=== PATIENT | female | born 1940 | race Caucasian/White ===

== ENCOUNTER 2019-10-26 05:42 | Day surgery (SDC) | payer MEDICARE ==
[2019-10-24 08:52] VITALS: BP_SYST 142; BP_SYST 189; BP_DIAS 104; BP_DIAS 68
[2019-10-24 08:54] LABS: BASOPHILS % (AUTO) 0.8 % (0.0-5.0); EOSINOPHILS % (AUTO) 3.5 % (0.0-8.0); HEMATOCRIT 40.6 % (36-48); LYMPHOCYTES % (AUTO) 25.9 % (21.0-51.0); MEAN CORPUSCULAR HEMOGLOBIN 27.2 pg (27.0-33.0); MEAN CORPUSCULAR HGB CONC 30.8 g/dL (32.0-36.0); MEAN CORPUSCULAR VOLUME 88.3 fL (79-99); MONOCYTES % (AUTO) 6.7 % (3.0-13.0); NEUTROPHILS % (AUTO) 62.8 % (40.0-77.0); PLATELET COUNT (AUTO) 251 K/uL (130-400); RED CELL DISTRIBUTION WIDTH 14.5 % (11.0-15.5); WHITE BLOOD COUNT (AUTO) 8.8 K/uL (4.8-10.8)
[2019-10-24 09:05] LABS: CREATININE 1.1 mg/dL (0.5-1.5)
[2019-10-24 09:07] LABS: INR 0.97 (0.85-1.15); PARTIAL THROMBOPLASTIN TIME 25.3 SEC (26.3-35.5); PROTHROMBIN TIME 10.2 SEC (9.6-11.6)
[2019-10-24 09:28] LABS: APPEARANCE,URINE Clear (CLEAR); BILIRUBIN,URINE Negative (NEGATIVE); COLOR,URINE Yellow (YELLOW); GLUCOSE, URINE (UA) Negative (NEGATIVE); KETONES,URINE Negative (NEGATIVE); LEUKOCYTE ESTERASE ,URINE Large (NEGATIVE); NITRATE,URINE Negative (NEGATIVE); OCCULT BLOOD,URINE Negative (NEGATIVE); PROTEIN,URINE Negative (NEGATIVE); UROBILINOGEN,URINE 0.2 mg/dL (0.2-1.0)
[2019-10-24 09:50] LABS: BACTERIA,URINE Few /HPF (None Seen); RBC,URINE 0-1 /HPF (0-1)
--- NOTE | 2019-10-24 10:47 | NUR ---
LABS INFORMED POLY BUCK OF ABNORMAL UA. STATES HE WILL CALL A PRESCRIPTION IN FOR AN ANTIBIOTIC. INSTRUCTED PT OF ANTIBIOTIC AND SHE WILL PICK IT UP.
[2019-10-25 10:35] VITALS: BP 166/71
[2019-10-25 15:00] VITALS: BP 152/84
--- NOTE | 2019-10-25 15:00 | NUR ---
RESCHEDULE PT IS RESCHEDULED FOR TOMORROW. RITO URENA DIRECTOR FOR [employer] SPOKE TO PT AND SPOUSE, OPTIONS GIVEN TO PROCEED WITH PROCEDURE TODAY OR RESCHEDULE FOR TOMORROW, PT OPTED TO BE RESCHEDULED FOR TOMORROW. PT INSTRUCTED TIME OF ARRIVAL 600 AM TOMORROW, REVIEWED PRE PROCEDURE INSTRUCTIONS WITH PT, VERBALIZED UNDERSTANDING. PT LEFT UNIT WITH IN STABLE CONDITION, NO COMPLAINTS MADE.
[2019-10-26] VITALS (18 sets, daily range): BP systolic 106–183; BP diastolic 43–66
[~2019-10-26] VITALS: Ht 172.7 cm; Wt 117.2 kg
[~2019-10-26 05:42] MED LIST: ASPI-555 PO; GLIP10TA19 PO; HYDR12.54 PO; METF-446 PO; METO25TA6 PO; SODIUM CHLORIDE 0.9% 1000ML 1,000 ML IV ONE; SODIUM CHLORIDE 0.9% 500ML 500 ML IV SCH
--- NOTE | 2019-10-26 06:11 | NUR ---
PRE-PROCEDURE RECEIVED FROM HOME TO DAY 15 FOR SCHEDULED LHC. AWAKE IN NO ACUTE DISTRESS. DENIES PAIN.CONNECTED TO CONTINUOUS CARDIOPULMONARY MONITORING. SIDE RAILS UP X2, BED IN LOWEST POSITION, AND CALL LIGHT W/IN REACH.
[2019-10-26] MEDS ORDERED: SODIUM CHLORIDE 0.9% 1000ML 1,000 ML IV ONE (06:21)
[2019-10-26] MEDS ORDERED: LIDOCAINE HCL 2% 20ML ONE (07:07)
[2019-10-26] MEDS ORDERED: IOHEXOL-350 50ML VIAL IV ONE (07:07)
[2019-10-26] MEDS ORDERED: HEPARIN SODIUM 1000UNIT/ML 10ML VIAL ONE (07:07)
[2019-10-26] MEDS ORDERED: IOHEXOL 350 MG/ML 100ML INFUS..BTL IV ONE (07:11)
--- NOTE | 2019-10-26 07:15 | NUR ---
PROCEDURE TRANSFERRED TO NIGHT MONITOR VIA BED BY ANSON RIZZO RN. AWAKE IN NO ACUTE DISTRESS.
[2019-10-26] MEDS ORDERED: LEVO500T2 PO (07:19)
[2019-10-26] MEDS ORDERED: LATA7.5D OP (07:19)
[2019-10-26] MEDS ORDERED: LABETALOL HCL 5 MG/ML 20ML VIAL IV ONE (07:49)
[2019-10-26] MEDS ORDERED: DEXTROSE 50%-WATER 50 ML DISP.SYRIN IV PRN (08:00)
[2019-10-26] MEDS ORDERED: SODIUM CHLORIDE 0.9% 10 ML VIAL IVP SCH (08:00)
[2019-10-26] MEDS ORDERED: GLUCAGON 1MG KIT 1 MG ML IM PRN (08:00)
--- NOTE | 2019-10-26 08:00 | NUR ---
POST-PROCEDURE RECEIVED FROM [employer]LE[employer] PROFESSIONAL VIA BED S/P [facility]. AWAKE IN NO ACUTE DISTRESS. DENIES PAIN. CONNECTED TO CONTINUOUS CARDIOPULMONARY MONITORING. SIDE RAILS UP X2, BED IN LOWEST POSITION, AND CALL LIGHT W/IN REACH. 6FSHEATH TO RIGHT FEMORAL;SITE W/O SIGNS OF BLEEDING; SOFT, NON-TENDER, DSG CD&I. EDUCATED TO KEEP RIGHT LEG STRAIGHT AND HEAD FLAT. PT VERBALIZED UNDERSTANDING.
[2019-10-26] MEDS ORDERED: LABETALOL HCL 5 MG/ML 20ML VIAL IV PRN (08:15)
[2019-10-26] MEDS ORDERED: ATROPINE SULFATE 0.1 MG/ML 10 ML SYG IVP ONE (08:17)
[2019-10-26 09:12] LABS: CHOLESTEROL 141 mg/dL (<200); HDL CHOLESTEROL 76 mg/dL (35-85); LDL DIRECT 98 mg/dL (0-99); TRIGLYCERIDES 102 mg/dL (30-200)
--- NOTE | 2019-10-26 09:20 | NUR ---
PROCEDURE 6F SHEATH TO RIGHT FEMORAL PULLED BY DAVON GARCIA RN USING DSTAT. TOLERATED PROCEDURE W/O COMPLICATIONS. CATH SITE W/O SIGNS OF BLEEDING; SITE SOFT,NON-TENDER. REINFORCED IMPORTANCE OF KEEPING RIGHT LEG STRAIGHT AND HEAD FLAT. PT VERBALIZED UNDERSTANDING.
--- NOTE | 2019-10-26 09:30 | NUR ---
DIET ATE 50% OF BREAKFAST.
[2019-10-26] MEDS ORDERED: INSULIN HUMULIN R 100 UNIT/ML 3ML ONE (09:46)
--- NOTE | 2019-10-26 10:38 | NUR ---
LABS RESULTS POLY PIERRE NOTIFIED OF LIPID PROFILE RESULTS. ORDER RECEIVED FOR ATORASTATIN 10MG PO DAILY FOR DISCHARGE.
[2019-10-26] MEDS ORDERED: INSULIN HUMULIN R 100 UNIT/ML 3ML SQ SCH (11:30)
[2019-10-26] MEDS ORDERED: ACETAMINOPHEN-CODEINE 300/30MG TAB PO PRN (12:15)
--- NOTE | 2019-10-26 15:06 | NUR ---
REPORT REPORT GIVEN VIA SBAR TO HERIBERTO CLAYTON. VERBALIZED UNDERSTANDING. Addendum: 10/26/19 at 1521 by IVAN GREENBERG RN RN CATH SITE CHECKED. SITE W/O SIGNS OF BLEEDING. DSTAT DRESSING CLEAN, DRY, AND INTACT; SITE SOFT, NON-TENDER.
== END 2019-10-26 17:38 | disposition home or self-care (01) ==
LOC: DAH 05:42
PROVIDERS: ATTEND Internal Medicine Cardiovascular Disease
DX: I25.119 Atherosclerotic heart disease of native coronary artery with unspecified angina pectoris (principal); E11.9 Type 2 diabetes mellitus without complications; E66.09 Other obesity due to excess calories; E78.00 Pure hypercholesterolemia, unspecified; Z87.891 Personal history of nicotine dependence; Z88.8 Allergy status to other drugs, medicaments and biological substances; Z68.39 Body mass index [BMI] 39.0-39.9, adult; Z79.82 Long term (current) use of aspirin; Z79.84 Long term (current) use of oral hypoglycemic drugs; Z90.49 Acquired absence of other specified parts of digestive tract; Z82.49 Family history of ischemic heart disease and other diseases of the circulatory system; Z83.3 Family history of diabetes mellitus; Z79.01 Long term (current) use of anticoagulants
CPT/HCPCS: 36415 ×2; 71045; 80048; 80061; 81001; 82948 ×3; 85025; 85610; 85730; 93005; 93458; A4215; A4216; A4221; A4222; A4223 ×2; A4606; A4663; A6402; C1894; J1644 ×2; J1815; J3490 ×2; J7030 ×2; Q9965; Q9967 ×2; J0461